=== PATIENT | female | born 1955 | race Caucasian/White ===

== ENCOUNTER 2021-03-18 09:22 | Outpatient (CLI) | payer BC, OTHER | END 2021-03-18 09:23 | disposition home or self-care (01) | LOC: CSHMAMMO 09:22 | PROVIDERS: ATTEND Obstetrics & Gynecology | DX: Z12.31 Encounter for screening mammogram for malignant neoplasm of breast (principal) | CPT/HCPCS: 77063; 77067 ==

== ENCOUNTER 2023-03-21 12:41 | Outpatient (CLI) | payer MEDICARE, OTHER | END 2023-03-21 12:42 | disposition home or self-care (01) | LOC: CSHMAMMO 12:41 | PROVIDERS: ATTEND Family Medicine | DX: Z12.31 Encounter for screening mammogram for malignant neoplasm of breast (principal) | CPT/HCPCS: 77063; 77067 ==

== ENCOUNTER 2024-03-24 09:59 | Outpatient (CLI) | payer MEDICARE, OTHER | END 2024-03-24 10:00 | disposition home or self-care (01) | LOC: CSHMAMMO 09:59 | PROVIDERS: ATTEND Family Medicine | DX: Z12.31 Encounter for screening mammogram for malignant neoplasm of breast (principal) | CPT/HCPCS: 77063; 77067 ==

== ENCOUNTER 2024-12-16 13:42 | Outpatient (CLI) | payer MEDICARE, OTHER | END 2024-12-16 13:43 | disposition home or self-care (01) | LOC: CSHMRI 13:42 | PROVIDERS: ATTEND Physician Assistant | DX: G43.109 Migraine with aura, not intractable, without status migrainosus (principal); R53.1 Weakness; J32.9 Chronic sinusitis, unspecified; R90.82 White matter disease, unspecified | CPT/HCPCS: 70553; 76376 ==

== ENCOUNTER 2025-03-31 09:26 | Outpatient (CLI) | payer MEDICARE, OTHER | END 2025-03-31 09:27 | disposition home or self-care (01) | LOC: CSHMAMMO 09:26 | PROVIDERS: ATTEND Physician Assistant | DX: Z12.31 Encounter for screening mammogram for malignant neoplasm of breast (principal); R92.333 Mammographic heterogeneous density, bilateral breasts | CPT/HCPCS: 77063; 77067 ==